=== PATIENT | female | born 1975 | race Caucasian/White ===

== ENCOUNTER 2017-10-10 23:31 | Emergency (ER) | payer OTHER ==
[2017-10-10 23:44] VITALS: BP 93/72; PULSE 101; TEMP 98.4; BMI 25.7
[2017-10-10] MEDS ORDERED: OSELTAMIVIR PHOSPHATE 75 MG CAPSULE PO ONE (23:44)
--- NOTE | 2017-10-10 23:44 | PDOC ---
History of Present Illness - General Exam Limitations: No Limitations - History of Present Illness Initial Comments: 10/11/17 00:06 The patient is a 42 year old female, accompanied by , with no significant past medical history, who presents to the emergency department with , sore throat and generalized body aches for the past couple of days. The patient reports her is currently sick with similar symptoms. She denies recent fevers, chills, headache or dizziness. She denies recent nausea, vomit, diarrhea or constipation. She denies recent dysuria, frequency, urgency or hematuria. She denies recent chest pain or shortness of breath. Allergies: NKA <Christiano Kendrick - Last Filed: 10/11/17 00:06> - General History Source: Patient <Patel Pope - Last Filed: 10/11/17 02:01> - General Chief Complaint: Weakness Stated Complaint: FATIGUE Time Seen by Provider: 10/10/17 23:44 Past History <Christiano Kendrick - Last Filed: 10/11/17 00:06> - Immunization History Immunization Up to Date: No - Suicide/Smoking/Psychosocial Hx Smoking History: Never smoked Have you smoked in the past 12 months: No Hx Alcohol Use: No Substance Use Type: None <Patel Pope - Last Filed: 10/11/17 02:01> - Past Medical History Allergies/Adverse Reactions: Allergies Allergy/AdvReac Type Severity Reaction Status Date / Time No Known Allergies Allergy Verified 10/10/17 23:42 Home Medications: Ambulatory Orders Methocarbamol [Robaxin -] 500 mg PO BID #14 tablet 03/03/14 No Home Medications 0 dose .ROUTE UTDICT 03/03/14 Oxycodone HCl/Acetaminophen [Percocet 5-325 mg Tablet -] 1 tab PO Q6H #20 tablet 03/03/14 Guaifenesin [Robitussin -] 100 mg PO Q4H #210 ml 10/11/17 Ibuprofen [Motrin -] 600 mg PO TID #30 tablet 10/11/17 Oseltamivir Phosphate [Tamiflu -] 75 mg PO BID #10 capsule 10/11/17 Review of Systems - Review of Systems Comments:: 10/11/17 00:06 CONSTITUTIONAL: Absent: fever, no chills, no fatigue EYES: Absent: visual changes ENT: Present: (+) Sore throat Absent: ear pain CARDIOVASCULAR: Absent: chest pain, no palpitations RESPIRATORY: Absent: cough, no SOB GI: Absent: abdominal pain, no nausea, no vomiting, no constipation, no diarrhea GENITOURINARY: Absent: dysuria, no frequency, no hematuria MUSKULOSKELETAL: Present: (+) Generalized body aches. Absent: back pain, neck pain SKIN: Absent: rash NEURO: Absent: headache <Christiano Kendrick - Last Filed: 10/11/17 00:06> *Physical Exam - Vital Signs Last Vital Signs Temp Pulse Resp BP Pulse Ox 98.4 F 101 H 20 93/72 97 10/10/17 23:42 10/10/17 23:42 10/10/17 23:42 10/10/17 23:42 10/10/17 23:42 - Physical Exam Comments: 10/11/17 00:07 GENERAL: Well-appearing, well-nourished. No apparent distress. HEENT: Normocephalic, atraumatic. PERRL, EOM intact. CARDIOVASCULAR: Normal S1, S2. Regular rate and rhythm. PULMONARY: Clear to auscultation bilaterally. ABDOMEN: Soft, non-distended, non-tender. EXTREMITIES: Normal ROM in all four extremities. No gross deformities. SKIN: Warm, dry. No rash NEUROLOGICAL: No focal neurological deficits. <Christiano Kendrick - Last Filed: 10/11/17 00:06> ED Treatment Course - Medications Given in the ED: ED Medications Discontinued Medications Generic Name Dose Route Start Last Admin Trade Name Freq PRN Reason Stop Dose Admin Oseltamivir Phosphate 75 mg 10/10/17 23:44 10/10/17 23:48 Tamiflu - PO 10/10/17 23:45 75 mg ONCE ONE Administration <Christiano Kendrick - Last Filed: 10/11/17 00:06> Medical Decision Making - Medical Decision Making 10/11/17 00:46 Dr. Pope: The scribe's documentation has been prepared under my direction and personally reviewed by me in its entirery. I confirm that the note above accurately reflects all work, treatment, procedures, and medical decision making performed by me. <Patel Pope - Last Filed: 10/11/17 02:01> *DC/Admit/Observation/Transfer - Attestations Scribe Attestion: 10/11/17 00:08 Documentation prepared by Christiano Kendrick, acting as medical management trainer for Patel Pope MD. <Christiano Kendrick - Last Filed: 10/11/17 00:06> - Discharge Dispostion Admit: No <Paetl Pope - Last Filed: 10/11/17 02:01> Diagnosis at time of Disposition: Influenza - Discharge Dispostion Disposition: HOME Condition at time of disposition: Stable - Prescriptions Prescriptions: Guaifenesin [Robitussin -] 100 mg PO Q4H #210 ml Ibuprofen [Motrin -] 600 mg PO TID #30 tablet Oseltamivir Phosphate [Tamiflu -] 75 mg PO BID #10 capsule - Patient Instructions Printed Discharge Instructions: DI for Influenza -- Adult Additional Instructions: take medication as directed. Stay home for one day from work for resolution of symptoms. Follow up with your doctor return if any problems. - Post Discharge Activity Forms/Work/School Notes: Back to Work
[2017-10-10] MEDS ORDERED: OSELTAMIVIR PHOSPHATE 75 MG CAPSULE ONE (23:54)
== END 2017-10-11 01:00 | disposition home or self-care (01) ==
LOC: JER 23:31
DX: J11.1 Influenza due to unidentified influenza virus with other respiratory manifestations (principal)
CPT/HCPCS: 87070; 87430; 99281-25